=== PATIENT | male | born 1950 | race Caucasian/White ===

== ENCOUNTER 2022-03-01 17:35 | Emergency (ER) | payer BC, OTHER ==
[2022-03-01] MEDS ORDERED: Lidocaine 1% PF 2 ML SDV INJECT ONE (17:50)
[2022-03-01] MEDS ORDERED: Diphtheria,Pertussis(Acell),Tetanus Vaccine 0.5 ML Syringe IM ONE (17:50)
[2022-03-01] MEDS ORDERED: Lidocaine 1% 5 ML VIAL INJECT ONE (19:09)
[2022-03-01] MEDS ORDERED: Bupivacaine 0.5% 10 ML SDV INJECT ONE (19:10)
[2022-03-01] MEDS ORDERED: Cephalexin 500 MG Cap PO STA (19:19)
== END 2022-03-01 20:26 | disposition home or self-care (01) ==
LOC: MW.ED 17:35
DX: S62.522B Displaced fracture of distal phalanx of left thumb, initial encounter for open fracture (principal); E78.00 Pure hypercholesterolemia, unspecified; I10 Essential (primary) hypertension; F17.210 Nicotine dependence, cigarettes, uncomplicated; W22.09XA Striking against other stationary object, initial encounter; Y99.0 Civilian activity done for income or pay
CPT/HCPCS: 11760; 73130; 99284; A9270; J3490; 99283